=== PATIENT | female | born 1980 | race Caucasian/White ===

== ENCOUNTER 2016-05-29 12:04 | Emergency (ER) | payer OTHER ==
[2016-05-29 12:13] VITALS: TEMP 97.7
[2016-05-29] MEDS ORDERED: ONDANSETRON 4 MG/2 ML VIAL IVP ONE (12:17)
[2016-05-29 12:22] LABS: % IMMATURE GRANULYOCYTES 0.4 % (0.0-1.1); ABSOLUTE IMMATURE GRANULOCYTES 0.04 10^3/uL (0.00-0.10); ADD DIFF? NO; ADD MORPH? NO; ADD SCAN? NO; ATYPICAL LYMPHOCYTE FLAG 0 (0-99); FRAGMENT RBC FLAG 20 (0-99); HEMATOCRIT 41.7 % (38.0-47.0); HEMOGLOBIN 13.2 g/dL (12.6-16.3); LEFT SHIFT FLG 20 (0-99); LIPEMIA HEMOLYSIS FLAG 80 (0-99); MEAN CELL HEMOGLOBIN 23.6 pg (27.9-34.1); MEAN CELL HEMOGLOBIN CONCENTR. 31.7 g/dL (32.4-36.7); MEAN CELL VOLUME 74.5 fL (81.5-99.8); MEAN PLATELET VOLUME 10.7 fL (8.7-11.7); PLATELET CLUMPS FLAG 0 (0-99); PLATELET COUNT 363 10^3/uL (150-400); RED CELL DISTRIBUTION WIDTH 16.1 % (11.5-15.2)
[2016-05-29] MEDS ORDERED: NS 1,000 ML IV ONE (12:44)
[2016-05-29 12:53] LABS: ANION GAP 13 mEq/L (8-16); CARBON DIOXIDE 23 mEq/l (22-31); CHLORIDE 105 mEq/L (97-110); CREATININE 0.7 mg/dL (0.6-1.0); GLOMERULAR FILTRATION RATE > 60; GLUCOSE 92 mg/dL (70-100); POTASSIUM 4.2 mEq/L (3.5-5.2); SODIUM 141 mEq/L (134-144)
[2016-05-29] MEDS ORDERED: PROMETHAZINE HCL 25 MG/ML INJ IVP ONE (12:53)
[2016-05-29 13:11] LABS: ALBUMIN 4.7 g/dL (3.5-5.0); BILIRUBIN,TOTAL 0.6 mg/dL (0.1-1.4); BILIRUBIN-CONJUGATED 0.4 mg/dL (0.0-0.5); BILIRUBIN-UNCONJUGATED 0.2 mg/dL (0.0-1.1); TOTAL PROTEIN 8.3 g/dL (6.3-8.2)
[2016-05-29 14:19] LABS: COLOR YELLOW; LEUKOCYTE ESTERASE,URINE TRACE (NEGATIVE); NITRITE,URINE NEGATIVE (NEGATIVE)
[2016-05-29 14:22] LABS: BACTERIA TRACE /hpf (NONE SEEN); MUCUS 1+ /lpf (NONE-1+)
--- NOTE | 2016-05-29 14:32 | EDPHY ---
H & P Stated Complaint: sudden onset of vomiting today.periumbilical pain Time Seen by Provider: 05/29/16 12:05 HPI/ROS: CHIEF COMPLAINT: abdominal pain HISTORY OF PRESENT ILLNESS: A 35-year-old female presents emergency department complaining of abdominal pain. Patient reports she woke this morning with a mild headache, she ate breakfast, 1 hour later she went on a walk and developed upper abdominal cramping, nausea and vomiting. 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 She has not had any bowel movements today. Patient denies fevers, no recent cough or cold, no recent sick contacts. Patient has had 3 C sections. She reports she is being seen by her OBGYN for a vaginal itching that she has had for 4 months, she has been treated for BV and yeast infections, she started taking a probiotic 1 month ago. She denies pelvic pain , no urinary frequency, urgency or dysuria. REVIEW OF SYSTEMS: A comprehensive 10 point review of systems is otherwise negative aside from elements mentioned in the history of present illness. Source: Patient Exam Limitations: No limitations - Personal History LMP (Females 10-55): 1-7 Days Ago Current Tetanus/Diphtheria Vaccine: Unsure Current Tetanus Diphtheria and Acellular Pertussis (TDAP): Unsure - Medical/Surgical History Hx Asthma: No Hx Chronic Respiratory Disease: No Hx Diabetes: No Hx Cardiac Disease: No Hx Renal Disease: No Hx Cirrhosis: No Hx Alcoholism: No Hx HIV/AIDS: No Hx Splenectomy or Spleen Trauma: No Other PMH: hx csectionx3, femur fracture (with plate, marion and bone graft)2006, ankle plate 2006.crohnes - Social History Smoking Status: Never smoked Constitutional: Initial Vital Signs Temperature (C) 36.5 C 05/29/16 12:10 Heart Rate 66 05/29/16 12:10 Respiratory Rate 16 05/29/16 12:10 Blood Pressure 121/81 H 05/29/16 12:10 O2 Sat (%) 97 05/29/16 12:10 O2 Delivery Mode Room Air Allergies/Adverse Reactions: No Known Allergies Allergy (Unverified 02/17/16 21:45) Home Medications: Medication Instructions Recorded Ondansetron Odt [Zofran Odt] 4 mg PO Q6-8PRN PRN #8 tab 05/29/16 Medical Decision Making - Diagnostics Imaging: Abdominal ultrasound Findings: The liver is normal in size measuring 17 cm. The anterior liver surface is smooth The gallbladder does not demonstrate gallstone formation, wall thickening or pericholecystic fluid. There is no intra or extrahepatic biliary dilatation. The visualized pancreas is normal. The spleen is normal in size measuring 9.8cm. The visualized abdominal aorta and inferior vena cava look normal. The kidneys are normal. The right kidney measures 10.7 and the left 10 cm in length. There is no free fluid. Impression: Normal abdominal sonogram. Results discussed with Zen Gonzalez. Dictated By: Romulo Blood MD ED Course/Re-evaluation: IV established, CBC, chemistry panel, urinalysis, lipase and LFTs ordered. Ultrasound of her abdomen ordered. Patient is given 4 mg of Zofran IV, she is given 1 L of normal saline. She continues with nausea and is given 12.5 mg of IV Phenergan. Patient has a unremarkable CBC, normal chemistry panel, normal lipase and LFTs. Urinalysis shows 5-10 RBCs and 5-10 WBCs, she has no UTI symptoms. A culture has been sent. 2pm-awaiting ultrasound. 3pm-patient reports abdominal pain is resolved, she continues with mild nausea. Ultrasound of her abdomen is normal. I did not get an ultrasound of her right lower quadrant as she has no right lower quadrant tenderness. She is pain-free at this time. Patient will be discharged home with a diagnosis of gastroenteritis. I have given her prescription for Zofran ODT. She is given return precautions for return of abdominal pain, fevers, any new symptoms or concerns. She agrees to follow up with her primary care doctor next week for re -evaluation. Patient is requesting discharge home. Differential Diagnosis: The differential diagnosis for the patient's abdominal pain included but was not limited to ovarian cyst, pelvic inflammatory disease, ovarian torsion, urinary tract infection, ectopic , cholecystitis, and appendicitis, gastroenteritis. - Data Points Laboratory Results: Laboratory Results 05/29/16 12:15 05/29/16 12:15 05/29/16 05/29/16 05/29/16 14:01 12:15 12:15 WBC RBC Hgb Hct MCV MCH MCHC RDW Plt Count MPV Neut % (Auto) Lymph % (Auto) [place] % (Auto) Eos % (Auto) Baso % (Auto) Nucleat RBC Rel Count Absolute Neuts (auto) Absolute Lymphs (auto) Absolute Monos (auto) Absolute Eos (auto) Absolute Basos (auto) Absolute Nucleated RBC Immature Gran % Immature Gran # Sodium Potassium Chloride Carbon Dioxide Anion Gap BUN Creatinine Estimated GFR Glucose Calcium Total Bilirubin 0.6 mg/dL mg/dL (0.1-1.4) Conjugated Bilirubin 0.4 mg/dL mg/dL (0.0-0.5) Unconjugated Bilirubin 0.2 mg/dL mg/dL (0.0-1.1) AST 33 IU/L IU/L (14-46) ALT 31 IU/L IU/L (9-52) Alkaline Phosphatase 47 IU/L IU/L (38-126) Total Protein 8.3 g/dL H g/dL (6.3-8.2) Albumin 4.7 g/dL g/dL (3.5-5.0) Lipase 141.0 IU/L IU/L (23-300) Beta HCG, Qual NEGATIVE Urine Color YELLOW Urine Appearance HAZY Urine pH 5.0 (5.0-7.5) Ur Specific [place] 1.020 (1.002-1.030) Urine Protein NEGATIVE (NEGATIVE) Urine Ketones 1+ H (NEGATIVE) Urine Blood NEGATIVE (NEGATIVE) Urine Nitrate NEGATIVE (NEGATIVE) Urine Bilirubin NEGATIVE (NEGATIVE) Urine Urobilinogen NEGATIVE EU EU (0.2-1.0) Ur Leukocyte Esterase TRACE H (NEGATIVE) Urine RBC 3-5 /hpf H /hpf (0-3) Urine WBC 3-5 /hpf H /hpf (0-3) Ur Epithelial Cells TRACE /lpf /lpf (NONE-1+) Urine Bacteria TRACE /hpf H /hpf (NONE SEEN) Urine Mucus 1+ /lpf /lpf (NONE-1+) Ur Culture Indicated? INDICATED H (NI) Urine Glucose NEGATIVE (NEGATIVE) 05/29/16 05/29/16 12:15 12:15 WBC 9.28 10^3/uL 10^3/uL (3.80-9.50) RBC 5.60 10^6/uL H 10^6/uL (4.18-5.33) Hgb 13.2 g/dL g/dL (12.6-16.3) Hct 41.7 % % (38.0-47.0) MCV 74.5 fL L fL (81.5-99.8) MCH 23.6 pg L pg (27.9-34.1) MCHC 31.7 g/dL L g/dL (32.4-36.7) RDW 16.1 % H % (11.5-15.2) Plt Count 363 10^3/uL 10^3/uL (150-400) MPV 10.7 fL fL (8.7-11.7) Neut % (Auto) 84.6 % H % (39.3-74.2) Lymph % (Auto) 12.8 % L % (15.0-45.0) [place] % (Auto) 2.0 % L % (4.5-13.0) Eos % (Auto) 0.1 % L % (0.6-7.6) Baso % (Auto) 0.1 % L % (0.3-1.7) Nucleat RBC Rel Count 0.0 % % (0.0-0.2) Absolute Neuts (auto) 7.84 10^3/uL H 10^3/uL (1.70-6.50) Absolute Lymphs (auto) 1.19 10^3/uL 10^3/uL (1.00-3.00) Absolute Monos (auto) 0.19 10^3/uL L 10^3/uL (0.30-0.80) Absolute Eos (auto) 0.01 10^3/uL L 10^3/uL (0.03-0.40) Absolute Basos (auto) 0.01 10^3/uL L 10^3/uL (0.02-0.10) Absolute Nucleated RBC 0.00 10^3/uL 10^3/uL (0-0.01) Immature Gran % 0.4 % % (0.0-1.1) Immature Gran # 0.04 10^3/uL 10^3/uL (0.00-0.10) Sodium 141 mEq/L mEq/L (134-144) Potassium 4.2 mEq/L mEq/L (3.5-5.2) Chloride 105 mEq/L mEq/L (97-110) Carbon Dioxide 23 mEq/l mEq/l (22-31) Anion Gap 13 mEq/L mEq/L (8-16) BUN 21 mg/dL mg/dL (7-23) Creatinine 0.7 mg/dL mg/dL (0.6-1.0) Estimated GFR > 60 Glucose 92 mg/dL mg/dL (70-100) Calcium 10.0 mg/dL mg/dL (8.5-10.4) Total Bilirubin Conjugated Bilirubin Unconjugated Bilirubin AST ALT Alkaline Phosphatase Total Protein Albumin Lipase Beta HCG, Qual Urine Color Urine Appearance Urine pH Ur Specific [place] Urine Protein Urine Ketones Urine Blood Urine Nitrate Urine Bilirubin Urine Urobilinogen Ur Leukocyte Esterase Urine RBC Urine WBC Ur Epithelial Cells Urine Bacteria Urine Mucus Ur Culture Indicated? Urine Glucose Medications Given: Discontinued Medications Sodium Chloride (Ns) 1,000 mls @ 0 mls/hr IV ONCE ONE PRN Reason: Wide Open Stop: 05/29/16 12:45 Last Admin: 05/29/16 12:30 Dose: 1,000 mls Ondansetron HCl (Zofran) 4 mg IVP EDNOW ONE Stop: 05/29/16 12:18 Last Admin: 05/29/16 12:20 Dose: 4 mg Promethazine HCl (Phenergan) 12.5 mg IVP EDNOW ONE Stop: 05/29/16 12:54 Last Admin: 05/29/16 12:59 Dose: 12.5 mg Departure - Departure Disposition: Home, Routine, Self-Care Clinical Impression: Acute gastroenteritis Condition: Good Instructions: Gastroenteritis (ED), Acute Nausea and Vomiting (ED) Additional Instructions: Take Zofran as needed for nausea every 8 hours, clear liquids only for the next 24 hours then advance your diet slowly as tolerated. Return to the emergency department for worsening symptoms, new symptoms or concerns. Follow up with your primary care doctor next week for re-evaluation. Referrals: [facility] [Other] - As per Instructions Prescriptions: Ondansetron Odt [Zofran Odt] 4 mg PO Q6-8PRN PRN #8 tab PRN Reason: Nausea/Vomiting, Can'T Take Po
[2016-05-29 14:51] VITALS: BP 106/60; PULSE 94; RESP 15; O2SAT 96
== END 2016-05-29 15:15 | disposition home or self-care (01) ==
LOC: EDUNIT#
DX: K52.9 Noninfective gastroenteritis and colitis, unspecified (principal)
CPT/HCPCS: 96374; J2405; J2550

== ENCOUNTER 2016-06-02 22:34 | Emergency (ER) | payer OTHER ==
--- NOTE | 2016-06-02 23:14 | EDPHY ---
H & P Stated Complaint: "burning" bilateral hands from unknown cause HPI/ROS: HPI CHIEF COMPLAINT: [place] to Hand HISTORY OF PRESENT ILLNESS: This patient very pleasant 35-year-old female denies any significant medical history does not take any daily medications, no recent surgical history presents to the emergency room with burning to the palms of her hands. Patient states that is intense 10 in 10 burning sensation the palms of her hands and fingers. Patient tells me that she was cutting a pepper around 11:00 a.m. this morning she did use gloves to cut this pepper she started having burning on the palmar aspect of the right hand and then developed worsening burning on that right hand then it transition to her left hand where they both palms feel as they are on fire. She has been taking Tylenol Motrin today for pain control also her father in law called her in some edema burn cream which did not help. She presents emergency room with burning sensation to bilateral palmar hands 10/10. Denies any pain to the dorsum of her hands. She is unsure if she has some type of reaction from the pepper or some type of reaction from the glove. Past Medical History: No significant medical history Past Surgical History: Denies recent surgical history Social History: Denies daily use of drugs alcohol tobacco products Family History: Noncontributory ROS REVIEW OF SYSTEMS: A comprehensive 10 point review of systems is otherwise negative aside from elements mentioned in the history of present illness. Exam Constitutional triage nursing summary reviewed, vital signs reviewed, awake/ alert. Eyes normal conjunctivae and sclera, EOMI, PERRLA. HENT normal inspection, atraumatic, moist mucus membranes, no epistaxis, neck supple/ no meningismus, no raccoon eyes. Respiratory clear to auscultation bilaterally, normal breath sounds, no respiratory distress, no wheezing. Cardiovascular rate normal, regular rhythm, no murmur, no edema, distal pulses normal. Gastrointestinal soft, non-tender, no rebound, no guarding, normal bowel sounds, no distension, no pulsatile mass. Genitourinary no CVA tenderness. Musculoskeletal no midline vertebral tenderness, full range of motion, no calf swelling, no tenderness of extremities, no meningismus, good pulses, neurovascularly intact. Skin erythema noted to bilateral palms and fingers, no erythema noted on the dorsum of the hands, neurovascularly intact good cap refill, it is tender to palpation over light touch of the palms, good radial pulse, pink, warm, & dry, no rash, skin atraumatic. Neurologic awake, alert and oriented x 3, AAOx3, moves all 4 extremities equally, motor intact, sensory intact, CN II-XII intact, normal cerebellar, normal vision, normal speech. Psychiatric normal mood/affect. Heme/Lymph/Immune no lymphadenopathy. Differential Diagnosis: Includes but is not limited to in a particular order contact skin irritation, chemical burn to the palmar hand, local skin irritation Medical Decision Making:Patient had an IV established be receiving IV fentanyl for acute pain control lidocaine jelly for topical pain control and will re- evaluate. Re-evaluation: 0347: re-evaluation at this time: patient feels much better. She is requesting be discharged home. Pain is well controlled. She received fentanyl and lidocaine jelly. She is comfortable she tells me her hands are not burning anymore. On re-evaluation she is neurovascular intact no evidence of infection. Comfortable being discharged she is requesting pain medicine to go home on. Limited supply of [place]. I did tell her to by lidocaine over the counter. Source: Patient - Personal History LMP (Females 10-55): Unknown Current Tetanus/Diphtheria Vaccine: Yes Current Tetanus Diphtheria and Acellular Pertussis (TDAP): Yes - Medical/Surgical History Hx Asthma: No Hx Chronic Respiratory Disease: No Hx Diabetes: No Hx Cardiac Disease: No Hx Renal Disease: No Hx Cirrhosis: No Hx Alcoholism: No Hx HIV/AIDS: No Hx Splenectomy or Spleen Trauma: No Other PMH: hx csectionx3, femur fracture (with plate, marion and bone graft)2006, ankle plate 2006.crohnes - Social History Smoking Status: Never smoked Constitutional: Initial Vital Signs Temperature (C) 36.8 C 06/02/16 22:40 Heart Rate 113 H 06/02/16 22:40 Respiratory Rate 22 H 06/02/16 22:40 Blood Pressure 151/111 H 06/02/16 22:40 O2 Sat (%) 96 06/02/16 22:40 O2 Delivery Mode Nasal Cannula O2 (L/minute) 2 Allergies/Adverse Reactions: No Known Allergies Allergy (Unverified 02/17/16 21:45) Home Medications: Medication Instructions Recorded Ondansetron Odt [Zofran Odt] 4 mg PO Q6-8PRN PRN #8 tab 05/29/16 Hydrocodone/APAP 5/325 [[place] 1 - 2 tab PO Q4H PRN #10 tab 06/03/16 5/325] Medical Decision Making - Data Points Medications Given: Discontinued Medications Fentanyl (Sublimaze) 100 mcg IVP EDNOW ONE Stop: 06/02/16 23:30 Last Admin: 06/02/16 23:45 Dose: 100 mcg Fentanyl (Sublimaze) 100 mcg IVP EDNOW ONE Stop: 06/03/16 00:50 Last Admin: 06/03/16 00:50 Dose: 100 mcg Sodium Chloride (Ns) 1,000 mls @ 0 mls/hr IV ONCE ONE PRN Reason: Wide Open Stop: 06/02/16 23:30 Last Admin: 06/02/16 23:45 Dose: 1,000 mls Lidocaine (Uroject Lidocaine 2% Jelly) 20 ml UR EDNOW ONE Stop: 06/03/16 00:01 Last Admin: 06/03/16 00:00 Dose: 20 ml Lidocaine (Uroject Lidocaine 2% Jelly) 20 ml UR EDNOW ONE Stop: 06/03/16 00:38 Last Admin: 06/03/16 00:38 Dose: 20 ml Ondansetron HCl (Zofran) 4 mg IVP EDNOW ONE Stop: 06/02/16 23:30 Last Admin: 06/02/16 23:45 Dose: 4 mg Departure - Departure Disposition: Home, Routine, Self-Care Clinical Impression: Chemical burn Condition: Good Instructions: Chemical Skin Burn (ED) Additional Instructions: 1.Please return emergency room if he develops any worsening symptoms questions or concerns. Referrals: NONE *PRIMARY CARE P,. [Primary Care Provider] - As per Instructions Prescriptions: Hydrocodone/APAP 5/325 [[place] 5/325] 1 - 2 tab PO Q4H PRN #10 tab PRN Reason: Pain, Moderate
[2016-06-02] MEDS ORDERED: fentaNYL 100 MCG/2 ML INJ IVP ONE (23:29)
[2016-06-02] MEDS ORDERED: ONDANSETRON 4 MG/2 ML VIAL IVP ONE (23:29)
[2016-06-02] MEDS ORDERED: NS 1,000 ML IV ONE (23:29)
[2016-06-02] MEDS ORDERED: LIDOCAINE 2% JELLY 20 ML (UROJECT) ONE (23:36)
[2016-06-03 00:12] VITALS: RESP 16
[2016-06-03] MEDS ORDERED: LIDOCAINE 2% JELLY 20 ML (UROJECT) ONE (00:35)
[2016-06-03] MEDS ORDERED: LIDOCAINE 2% JELLY 20 ML (UROJECT) UR ONE ×2 (00:37)
[2016-06-03] MEDS ORDERED: fentaNYL 100 MCG/2 ML INJ IVP ONE (00:49)
[2016-06-03] MEDS ORDERED: ONDANSETRON 4 MG/2 ML VIAL ONE (01:46)
[2016-06-03] MEDS ORDERED: HYDROCOD/APAP 5/325 PREPACK#6 BTL TAKEHOME ONE ×2 (04:05→04:20)
[2016-06-03 04:16] VITALS: BP 112/68; PULSE 66; TEMP 98.1; O2SAT 95
== END 2016-06-03 04:16 | disposition home or self-care (01) ==
DX: T62.8X1A Toxic effect of other specified noxious substances eaten as food, accidental (unintentional), initial encounter (principal); T23.551A Corrosion of first degree of right palm, initial encounter; T23.552A Corrosion of first degree of left palm, initial encounter; T32.0 Corrosions involving less than 10% of body surface; X58.XXXA Exposure to other specified factors, initial encounter; Y93.89 Activity, other specified
CPT/HCPCS: 96374; J2405; J3010

== ENCOUNTER 2016-12-29 13:02 | Emergency (ER) | payer OTHER ==
[2016-12-29] MEDS ORDERED: NS 1,000 ML IV ONE ×2 (14:07→14:09)
--- NOTE | 2016-12-29 14:17 | EDPHY ---
HPI/HX/ROS/PE/MDM Narrative: CHIEF COMPLAINT: Abdominal/back pain, vomiting, and diarrhea HPI: The patient is a 36 y/o female complaining of abdominal and back pain, vomiting , and diarrhea. She started vomiting 2 days ago, which lasted for about 4 hours. Yesterday she had diarrhea all day. Today she has not vomited or had diarrhea, but she states she cannot eat or drink. She is currently having abdominal pain that radiates to her back. Her doctor sent her to an outpatient laboratory for blood work, but she decided to present herself to this ED because her symptoms have not improved. Denies recent travel outside of country , recent course of antibiotics, fever, paresthesias, urinary complaints or other pertinent symptoms. REVIEW OF SYSTEMS: Aside from elements discussed in the HPI, a comprehensive 10-point review of systems was reviewed and is negative. PMH: 3 C-sections, femur fracture 2006 SOCIAL HISTORY: Children at bedside, , lives in [place] PHYSICAL EXAM: General:Patient is alert, in no acute distress. ENT:Eyes are normal to inspection. ENT inspection normal. Neck: Normal inspection. Full range of motion. Respiratory:No respiratory distress. Breath sounds normal bilaterally. Cardiovascular: Regular rate and rhythm. Strong peripheral pulses. Normal cap refill. Abdomen:The abdomen is nontender to palpation. There are no peritoneal signs. There are normal bowel sounds. Back: Normal to inspection. No tenderness to palpation. Skin: Normal color. No rash. Warm and dry. Extremities: Normal appearance. Full range of motion. Neuro: Oriented x3. Normal motor function. Normal sensory function. Portions of this note were transcribed by an ED scribe. I personally performed the history, physical exam, and medical decision making; and confirm the accuracy of the information in the transcribed note. ED Course: The patient is a 36 y/o female presenting with abdominal pain radiating to her back, onset 2 days ago. She also had a bout of vomiting, diarrhea, and has lost her appetite. Her physical exam is normal. Reassessed patient and discussed laboratory results. On re-evaluation at 1500, the patient is comfortable and her child is sleeping on her abdomen. As such, I have very low suspicion for acute abdomen. The patient has not been able to provide a stool sample for testing. I have given her a follow up with Dr. Pretty , access director, if her symptoms do no improve. Return precautions provided ; patient is comfortable with this plan. - Data Points Laboratory Results: Laboratory Results 12/29/16 14:20 12/29/16 14:20 12/29/16 12/29/16 12/29/16 14:20 14:20 14:20 WBC 4.84 10^3/uL 10^3/uL (3.80-9.50) RBC 5.17 10^6/uL 10^6/uL (4.18-5.33) Hgb 12.5 g/dL L g/dL (12.6-16.3) Hct 39.6 % % (38.0-47.0) MCV 76.6 fL L fL (81.5-99.8) MCH 24.2 pg L pg (27.9-34.1) MCHC 31.6 g/dL L g/dL (32.4-36.7) RDW 15.2 % % (11.5-15.2) Plt Count 251 10^3/uL 10^3/uL (150-400) MPV 9.7 fL fL (8.7-11.7) Neut % (Auto) 73.6 % % (39.3-74.2) Lymph % (Auto) 18.6 % % (15.0-45.0) [place] % (Auto) 7.2 % % (4.5-13.0) Eos % (Auto) 0.2 % L % (0.6-7.6) Baso % (Auto) 0.0 % L % (0.3-1.7) Nucleat RBC Rel Count 0.0 % % (0.0-0.2) Absolute Neuts (auto) 3.56 10^3/uL 10^3/uL (1.70-6.50) Absolute Lymphs (auto) 0.90 10^3/uL L 10^3/uL (1.00-3.00) Absolute Monos (auto) 0.35 10^3/uL 10^3/uL (0.30-0.80) Absolute Eos (auto) 0.01 10^3/uL L 10^3/uL (0.03-0.40) Absolute Basos (auto) 0.00 10^3/uL L 10^3/uL (0.02-0.10) Absolute Nucleated RBC 0.00 10^3/uL 10^3/uL (0-0.01) Immature Gran % 0.4 % % (0.0-1.1) Immature Gran # 0.02 10^3/uL 10^3/uL (0.00-0.10) Sodium 139 mEq/L mEq/L (134-144) Potassium 3.9 mEq/L mEq/L (3.5-5.2) Chloride 105 mEq/L mEq/L (97-110) Carbon Dioxide 24 mEq/l mEq/l (22-31) Anion Gap 10 mEq/L mEq/L (8-16) BUN 10 mg/dL mg/dL (7-23) Creatinine 0.7 mg/dL mg/dL (0.6-1.0) Estimated GFR > 60 Glucose 135 mg/dL H mg/dL (70-100) Calcium 9.6 mg/dL mg/dL (8.5-10.4) Total Bilirubin 0.3 mg/dL mg/dL (0.1-1.4) Conjugated Bilirubin 0.1 mg/dL mg/dL (0.0-0.5) Unconjugated Bilirubin 0.2 mg/dL mg/dL (0.0-1.1) AST 25 IU/L IU/L (14-46) ALT 35 IU/L IU/L (9-52) Alkaline Phosphatase 38 IU/L IU/L (38-126) Total Protein 7.5 g/dL g/dL (6.3-8.2) Albumin 4.4 g/dL g/dL (3.5-5.0) Lipase 98 IU/L IU/L (23-300) Beta HCG, Qual NEGATIVE Medications Given: Sodium Chloride (Ns) 1,000 mls @ 0 mls/hr IV EDNOW ONE; Wide Open PRN Reason: Protocol Last Admin: 12/29/16 14:49 Dose: 1,000 mls Discontinued Medications Sodium Chloride (Ns) 1,000 mls @ 0 mls/hr IV ONCE ONE; Wide Open PRN Reason: Protocol Stop: 12/29/16 14:10 Last Admin: 12/29/16 14:18 Dose: 1,000 mls General Time Seen by Provider: 12/29/16 14:03 Initial Vital Signs: Initial Vital Signs Temperature (C) 36.9 C 10/04/17 13:06 Heart Rate 101 H 12/29/16 13:06 Respiratory Rate 18 12/29/16 13:06 Blood Pressure 108/87 H 12/29/16 13:06 O2 Sat (%) 96 12/29/16 13:06 O2 Delivery Mode Room Air Allergies/Adverse Reactions: No Known Allergies Allergy (Verified 12/29/16 13:05) Home Medications: Medication Instructions Recorded NK [No Known Home Meds] 12/29/16 Departure - Departure Disposition: Home, Routine, Self-Care Clinical Impression: Acute gastroenteritis Condition: Good Instructions: Gastroenteritis (ED) Additional Instructions: Follow-up with your primary doctor within 72 hours. Follow-up with a access director within a week for unimproved symptoms. Return to the Emergency Department for fever, chest pain, shortness of breath, increasing pain or other worsening of condition. Referrals: Hardy Pretty MD [[facility] Primary Care Provider] - As per Instructions Report Scribed for: Romulo Eldridge Report Scribed by: Carina Nguyen Date of Report: 12/29/16 Time of Report: 14:11
[2016-12-29 14:20] VITALS: RESP 15
[2016-12-29 14:29] LABS: % IMMATURE GRANULYOCYTES 0.4 % (0.0-1.1); ABSOLUTE IMMATURE GRANULOCYTES 0.02 10^3/uL (0.00-0.10); ADD DIFF? NO; ADD MORPH? NO; ADD SCAN? NO; ATYPICAL LYMPHOCYTE FLAG 0 (0-99); FRAGMENT RBC FLAG 0 (0-99); HEMATOCRIT 39.6 % (38.0-47.0); HEMOGLOBIN 12.5 g/dL (12.6-16.3); LEFT SHIFT FLG 30 (0-99); LIPEMIA HEMOLYSIS FLAG 80 (0-99); MEAN CELL HEMOGLOBIN 24.2 pg (27.9-34.1); MEAN CELL HEMOGLOBIN CONCENTR. 31.6 g/dL (32.4-36.7); MEAN CELL VOLUME 76.6 fL (81.5-99.8); MEAN PLATELET VOLUME 9.7 fL (8.7-11.7); PLATELET CLUMPS FLAG 0 (0-99); PLATELET COUNT 251 10^3/uL (150-400); RED BLOOD CELL COUNT 5.17 10^6/uL (4.18-5.33); RED CELL DISTRIBUTION WIDTH 15.2 % (11.5-15.2)
[2016-12-29 14:47] LABS: ALANINE AMINOTRANSFERASE 35 IU/L (9-52); ALBUMIN 4.4 g/dL (3.5-5.0); ALKALINE PHOSPHATASE 38 IU/L (38-126); ANION GAP 10 mEq/L (8-16); ASPARTATE AMINOTRANSFERASE 25 IU/L (14-46); BILIRUBIN,TOTAL 0.3 mg/dL (0.1-1.4); BILIRUBIN-CONJUGATED 0.1 mg/dL (0.0-0.5); BILIRUBIN-UNCONJUGATED 0.2 mg/dL (0.0-1.1); CALCIUM 9.6 mg/dL (8.5-10.4); CARBON DIOXIDE 24 mEq/l (22-31); CHLORIDE 105 mEq/L (97-110); CREATININE 0.7 mg/dL (0.6-1.0); GLOMERULAR FILTRATION RATE > 60; GLUCOSE 135 mg/dL (70-100); POTASSIUM 3.9 mEq/L (3.5-5.2); SODIUM 139 mEq/L (134-144); TOTAL PROTEIN 7.5 g/dL (6.3-8.2)
[2016-12-29 15:24] VITALS: BP 109/68; PULSE 67; TEMP 98.1; O2SAT 97
== END 2016-12-29 15:23 | disposition home or self-care (01) ==
DX: K52.9 Noninfective gastroenteritis and colitis, unspecified (principal); E86.9 Volume depletion, unspecified